=== PATIENT | male | born 1955 | race Caucasian/White ===

== ENCOUNTER 2016-11-24 12:45 | Emergency (ER) | payer OTHER ==
[2016-11-24 12:55] VITALS: TEMP 97.9; O2SAT 96
--- NOTE | 2016-11-24 13:07 | EDPHY ---
H & P Time Seen by Provider: 11/24/16 12:59 HPI/ROS: CHIEF COMPLAINT: Head injury HISTORY OF PRESENT ILLNESS: This patient is a 61 year old male who presents to the Emergency Department following a head injury this morning while skiing at [employer], where he works as a [employer]. He tells me that he was feeling completely normal before he started down a blue run at the [employer]; he denies chest pain or lightheadedness this morning. The last thing he remembers was being at the top of the hill before waking up further toward the end of the run. He has no recollection of falling, and nobody witnessed this event. He was wearing a new helmet while skiing which cracked at the time of the suspected fall. Upon presentation, he has no complaints. He denies headache or any additional injuries. No chest pain, dizziness, or weakness. He denies any pertinent medical history. REVIEW OF SYSTEMS: Constitutional: No weakness Eyes: No visual changes or eye pain ENT: No dental trauma Neck: No pain or injury Respiratory: No shortness of breath Cardiac: No chest pain Gastrointestinal: No abdominal pain, no vomiting Back: No pain or injury Genitourinary: No hematuria Musculoskeletal: No joint pain Skin: No lacerations Neurological: No headache, no dizziness Past Medical/Surgical History: Knee surgery. Social History: ; at bedside. Works at [employer]. Smoking Status: Never smoked Physical Exam: General Appearance: Alert, no distress Head: Atraumatic Eyes: No conjunctival erythema, PERRLA, EOMI ENT, Mouth: No hemotypanum, no oral trauma, no bony tenderness Neck: Non-tender, full range of motion without pain Respiratory: No chest wall tenderness, lungs clear bilaterally Cardiovascular: Regular rate and rhythm Abdomen: Abdomen is soft and non tender Skin: No lacerations, no abrasions Back: No midline T/L/S tenderness Extremities: Pelvis is stable and nontender; no extremity tenderness or deformity, full range of motion without pain Neurological: A&Ox3, normal motor function, normal sensory exam, cranial nerves intact Psychiatric: Mood and affect normal Constitutional: Initial Vital Signs Temperature (C) 36.6 C 11/24/16 12:52 Heart Rate 64 11/24/16 12:52 Respiratory Rate 18 11/24/16 12:52 Blood Pressure 137/85 H 11/24/16 12:52 O2 Sat (%) 96 11/24/16 12:52 Allergies/Adverse Reactions: No Known Allergies Allergy (Unverified 11/24/16 12:51) Home Medications: Medication Instructions Recorded ALPRAZolam 11/24/16 Medical Decision Making - Diagnostics EKG Interpretation: EKG interpreted by me reveals normal sinus rhythm, rate 65; probably left ventricular hypertrophy; borderline T abnormalities in the inferior leads. Imaging: Study: CT of the head Indication: Trauma, memory lapse Results: CT scan of the head was obtained. The results of the study are: normal. The study was read by the radiologist, Dr. Elvin Swenson. I viewed the images myself on the PACS system. ED Course/Re-evaluation: This patient presents after an episode of loss of consciousness, either secondary to a head injury alone or a head injury after a syncopal episode. Unfortunately, there were no witnesses to this event so we will not be able to determine the etiology of the episode. In addition, the patient is currently asymptomatic, without headache, neck pain or any other symptoms. The patient was placed on lunchroom monitor in the ED. Will proceed with labs, EKG, and CT of the head. 1342: Imaging results reported to me by Dr. Swenson, radiologist. Labs reviewed by myself and are normal. Troponin is negative. monitoring engineer revealed normal sinus rhythm throughout. I discussed imaging, EKG, and lab results with the patient and his . I discussed with him return precautions for head injury. I recommended to him that he follow-up with his PCP for further evaluation. He is agreeable to this. He will be discharged home in good condition. Differential Diagnosis: Differential diagnosis includes does not limited to dysrhythmia, acute coronary syndrome, skull fracture, intracranial hemorrhage, dysrhythmia, electrolyte abnormality, hypoglycemia. - Data Points Laboratory Results: Laboratory Results 11/24/16 13:48 11/24/16 13:48 Medications Given: Discontinued Medications Sodium Chloride (Ns) 1,000 mls @ 0 mls/hr IV ONCE ONE PRN Reason: Wide Open Stop: 11/24/16 13:13 Last Admin: 11/24/16 13:51 Dose: 1,000 mls Departure - Departure Disposition: Home, Routine, Self-Care Clinical Impression: Head injury Qualifiers: Encounter type: initial encounter Qualified Code(s): S09.90XA - Unspecified injury of head, initial encounter Condition: Good Instructions: Head Injury (ED) Additional Instructions: 1. Call to schedule a follow-up appointment with a primary care provider. We have referred you to our on-call physician, Dr. Leena Mckeon. 2. Return to the Emergency Department if you experience nausea and vomiting, severe headache, confusion, fainting, difficulty with speech or walking, or other serious concerns. Referrals: Leena Mckeon MD [Medical Doctor] - As per Instructions Stand Alone Forms: Work Excuse Report Scribed for: Korin Kwan Report Scribed by: Chelsi Lord Date of Report: 11/24/16 Time of Report: 13:08 Physician Review and Approval Statement: 11/24/16 13:39 Portions of this note were transcribed by a medical scientific liaison. I personally performed a history, physical exam, medical decision making, and confirmed accuracy of information the transcribed note.
[2016-11-24] MEDS ORDERED: NS 1,000 ML IV ONE (13:12)
--- NOTE | 2016-11-24 13:45 | CPEKG ---
Heart Rate: 65 RR Interval: 923 P-R Interval: 156 QRSD Interval: 106 QT Interval: 444 QTC Interval: 462 P [place]: 55 QRS [place]: -19 T Wave [place]: -11 EKG Severity - ABNORMAL ECG - EKG Impression: SINUS RHYTHM EKG Impression: PROBABLE LEFT VENTRICULAR HYPERTROPHY EKG Impression: BORDERLINE T ABNORMALITIES, INFERIOR LEADS Electronically Signed By: Korin Kwan 24-Nov-2016 21:09:15
[2016-11-24 13:58] LABS: % IMMATURE GRANULYOCYTES 0.3 % (0.0-1.1); ABSOLUTE IMMATURE GRANULOCYTES 0.02 10^3/uL (0.00-0.10); ADD DIFF? NO; ADD MORPH? NO; ADD SCAN? NO; ATYPICAL LYMPHOCYTE FLAG 10 (0-99); FRAGMENT RBC FLAG 0 (0-99); HEMATOCRIT 41.6 % (40.0-51.0); HEMOGLOBIN 14.8 g/dL (13.7-17.5); LEFT SHIFT FLG 0 (0-99); LIPEMIA HEMOLYSIS FLAG 90 (0-99); MEAN CELL HEMOGLOBIN 31.4 pg (27.9-34.1); MEAN CELL HEMOGLOBIN CONCENTR. 35.6 g/dL (32.4-36.7); MEAN CELL VOLUME 88.3 fL (81.5-99.8); MEAN PLATELET VOLUME 9.3 fL (8.7-11.7); PLATELET CLUMPS FLAG 10 (0-99); PLATELET COUNT 269 10^3/uL (150-400); RED BLOOD CELL COUNT 4.71 10^6/uL (4.40-6.38); RED CELL DISTRIBUTION WIDTH 12.2 % (11.5-15.2)
[2016-11-24 14:11] LABS: ANION GAP 8 mEq/L (8-16); CALCIUM 9.4 mg/dL (8.5-10.4); CARBON DIOXIDE 24 mEq/l (22-31); CHLORIDE 106 mEq/L (97-110); GLOMERULAR FILTRATION RATE > 60; GLUCOSE 82 mg/dL (70-100); POTASSIUM 4.2 mEq/L (3.5-5.2); SODIUM 138 mEq/L (134-144)
[2016-11-24 14:23] LABS: TROPONIN I < 0.012 ng/mL (0-0.034)
[2016-11-24 14:41] VITALS: BP 139/69; PULSE 70; RESP 16
== END 2016-11-24 15:10 | disposition home or self-care (01) ==
LOC: EDUNIT#
DX: S09.90XA Unspecified injury of head, initial encounter (principal); V00.328A Other snow-ski accident, initial encounter; Y99.8 Other external cause status; Y93.23 Activity, snow (alpine) (downhill) skiing, snowboarding, sledding, tobogganing and snow tubing